=== PATIENT | female | born 1980 | race Caucasian/White ===

== ENCOUNTER 2020-03-15 18:23 | Emergency (ER) | payer SELFPAY ==
[~2020-03-15] VITALS: Ht 172 cm; Wt 61.5 kg
--- NOTE | 2020-03-15 19:08 | ED Integumentary General ---
General Chief Complaint: Skin/Wound Problems Stated Complaint: INFECTION ON RT LEG Nursing Triage Note: Pt presents with an area of concern on her right romo. Pt said she was told 2 years ago that she had an infected hair follicle but she states it has just gotten worse over the past 2 days Source: patient History of Present Illness Date Seen by Provider: Mar 15, 2020 Time Seen by Provider: 18:50 Initial Comments Patient is a 40-year-old female with history of sebaceous cysts located above right mid hamstring. Patient reports increased inflammation redness and swelling over the past 2 days. He isn't states she has had cysts for over 2 years and that it is normally much smaller in size and less painful. No fever chills nausea vomiting or sweats. No other acute symptoms or complaints. Timing/Duration: week, getting worse, changing over time Severity: mild Location: extremities Possible Cause: no cause identified Associated Symptoms: denies symptoms Allergies and Home Medications Allergies Coded Allergies: Penicillins (Verified Allergy, Unknown, 03/15/20) Patient Home Medication List Home Medication List Reviewed: Yes Review of Systems Review of Systems Constitutional: see HPI EENTM: see HPI Cardiovascular: see HPI Gastrointestinal: see HPI Genitourinary: see HPI Musculoskeletal: see HPI Skin: see HPI Psychiatric/Neurological: See HPI Endocrine: See HPI Hematologic/Lymphatic: See HPI Past [id number] Hx Past Med/Social Hx: Reviewed Nursing Past Med/Soc Hx Patient Social History Alcohol Use: Occasionally Uses Recreational Drug Use: No Smoking Status: Current Everyday Smoker Type Used: Cigarettes Recent Foreign Travel: No Contact w/Someone Who Travel: No Recent Infectious Disease Expo: No Recent Hopitalizations: No Physical Abuse: No Sexual Abuse: No Seasonal Allergies Seasonal Allergies: No Past Medical History Surgeries: No Respiratory: No Cardiac: Yes Hypertension Neurological: No Genitourinary: No Gastrointestinal: No Musculoskeletal: No Endocrine: No HEENT: No Cancer: No Psychosocial: Yes Anxiety Integumentary: No Blood Disorders: No Physical Exam Vital Signs Vital Signs - First Documented 03/15/20 18:38 Temp 36.4 Pulse 89 Resp 16 B/P (MAP) 131/107 (115) Pulse Ox 100 O2 Delivery Room Air Capillary Refill : Less Than 3 Seconds General Appearance: WD/WN, no apparent distress HEENT: PERRL/EOMI, normal ENT inspection Neck: non-tender, normal inspection Cardiovascular: regular rate, rhythm Respiratory: lungs clear Skin: other (infected sebaceous cyst right mid hamstring surrounded by small patch of cellulitis. No induration or streaking.) Progress/Results/Core Measures Results/Orders My Orders Orders - NAY YOUSIF DO Cephalexin Capsule (Keflex Capsule) (03/15/20 19:15) Ibuprofen Tablet (Motrin Tablet) (03/15/20 19:15) Vital Signs/I&O 03/15/20 18:38 Temp 36.4 Pulse 89 Resp 16 B/P (MAP) 131/107 (115) Pulse Ox 100 O2 Delivery Room Air Blood Pressure Mean: 115 Departure Communication (Admissions) Suspect infected suspicious cyst. Patient given anti-inflammatories and placed on antibiotics. First dose of antibiotics given in the emergency department. She is referred to local PCP for further evaluation and surgical excision. Return precautions reviewed. Patient verbalizes understanding and agreement discharge instructions prior to departure. Impression Primary Impression: Sebaceous cyst Disposition: HOME, SELF-CARE Condition: Stable Departure-Patient Inst. Decision time for Depature: 19:10 Patient Instructions: Cellulitis (Skin Infection), Adult (DC) Add. Discharge Instructions: You were evaluated emergency department for a skin infection overlying his sebaceous cyst. Please take ibuprofen for pain and complete full course of antibiotics. Follow-up with [facility]. Contact [phone] scheduled follow-up appointment for reevaluation. Return to ED if new or worsening symptoms. All discharge instructions reviewed with patient and/or family. Voiced understanding. NAY YOUSIF DO Mar 15, 2020 19:08
[2020-03-15 19:13] VITALS: BP 131/107
[2020-03-15] MEDS ORDERED: CEPH-507 PO (19:13)
[2020-03-15] MEDS ORDERED: CEPHALEXIN 250 MG (KEFLEX) CAP PO ONE (19:15)
[2020-03-15] MEDS ORDERED: IBUPROFEN TABLET 200 MG TAB PO ONE (19:15)
== END 2020-03-15 19:24 | disposition home or self-care (01) ==
LOC: ER FS 18:27
DX: L72.3 Sebaceous cyst (principal); I10 Essential (primary) hypertension; F17.210 Nicotine dependence, cigarettes, uncomplicated; Z88.0 Allergy status to penicillin
CPT/HCPCS: 99283